=== PATIENT | female | born 1940 | race Caucasian/White ===

== ENCOUNTER 2017-06-24 07:13 | Outpatient (CLI) | payer MEDICARE, OTHER, MEDICAID ==
[~2017-06-24 07:13] MED LIST: Iopamidol 370 76% 100 ML VIAL ONE
--- NOTE | 2017-06-24 09:51 | CT ---
CT ABDOMEN WITH AND WITHOUT IV CONTRAST: HISTORY: Renal cystic masses. COMPARISON: 05/27/17 and 05/12/15. FINDINGS: Mild atelectasis remains at the lung bases. Calcified granulomata throughout the liver are consiste nt with healed granulomatous disease. There is calcification in the arterial structures. No hydron ephrosis or renal calcifications are apparent. The left kidney remains atrophied. The cyst at the superior pole of the right kidney is now 2.7 cm greatest diameter, slightly larger than on the prior CT, but now is of fluid density rather than hyp erdense. Minimal hyperdensity remains within the posterior aspect of this cyst on the precontrast i mages. Small exophytic cyst projects laterally from the inferior pole of the right kidney. Hyperdense cyst at the posterior cortex of the left kidney and small simple cysts within the cortex of the atrophie d left kidney are stable. The septated cystic lesion at the superior pole of the left kidney is sta ble. The pelvis is was not imaged. IMPRESSION: 1. Slight interval enlargement of the cystic lesion at the superior pole of the right kidney, less hyperdense than on the prior CT exam. Other bilateral renal cystic lesions are stable. No new abno rmalities are apparent. 2. Atherosclerosis. POS: [facility]
== END 2017-06-24 07:14 | disposition home or self-care (01) ==
LOC: CT 07:13
PROVIDERS: ATTEND Urology
DX: Q61.00 Congenital renal cyst, unspecified (principal); E11.9 Type 2 diabetes mellitus without complications; I70.90 Unspecified atherosclerosis
CPT/HCPCS: 74170

== ENCOUNTER 2018-09-14 02:30 | Observation (INO) | payer MEDICARE, MEDICAID ==
[2018-09-14 03:06] LABS: #Eosinphils 0.4 thou/uL (0.0-0.7); #Lymphocytes 2.2 thou/uL (1.20-3.40); #Monocytes 0.8 thou/uL (0.11-0.59); #Neutrophils 8.5 thou/uL (1.40-6.50); %Basophils 0.2 % (0.0-1.0); %Eosinophils 3.7 % (0.0-10.0); %Lymphocytes 18.6 % (21.0-51.0); %Monocytes 6.9 % (0.0-10.0); %Neutrophils 70.5 % (42.0-75.0); Hemoglobin 12.6 g/dL (12.0-16.0); Mean Corpuscular HGB CONC 33.2 g/dL (32.0-36.0); Mean Corpuscular Hemoglobin 32.6 pg (27.0-31.0); Mean Corpuscular Volume 98.3 fL (78.0-98.0); Mean Platelet Volume 8.8 fL (7.4-10.4); Platelet Count 259 thou/uL (130-400); RBC Distribution Width 12.2 % (11.5-14.5); Red Blood Cell (RBC) Count 3.86 mill/uL (4.20-5.40)
[2018-09-14 03:21] LABS: Bilirubin Negative (Negative); Blood, Urine Negative (Negative); Clarity CLOUDY (Clear); Glucose, Urine (Dipstick) Negative (Negative); Leukocyte Large (Negative); Nitrite Positive (Negative); Protein, Urine (Dipstick) Trace mg/dL (Neg-Trace); Specific Gravity, Urine 1.012 (1.002-1.036); pH, Urine 7.5 (5.0-9.0)
[2018-09-14 03:24] LABS: Bacteria/HPF 3+ HPF (None Seen); Hyaline Casts/LPF 0-3 HYALINE CAST LPF (0-3 Hyaline); Pathc Cast-AUWi Flag 0.14 (0-2.49); RBC/HPF 0-3 HPF (0-3); Squamous Epithelial 0-3 HPF (0-3); WBC/HPF 21-50 HPF (0-3)
[2018-09-14 03:30] LABS: ALT (SGPT) 13 U/L (8-55); AST (SGOT) 11 U/L (5-34); Albumin 3.7 g/dL (3.4-4.8); Alkaline Phosphatase 69 U/L (40-150); Anion Gap 16 mmol/L (10-20); BUN (Urea Nitrogen) 32 mg/dL (9.8-20.1); Bilirubin, Total 0.2 mg/dL (0.2-1.2); Calc. Creatinine Clearance 0 mL/min (70-130); Calcium 9.7 mg/dL (7.8-10.44); Carbon Dioxide 22 mmol/L (23-31); Chloride 108 mmol/L (98-107); Estimated GFR-MDRD 58; Globulin 3.9 g/dL (2.4-3.5); Glucose 84 mg/dL (83-110); Lipase 95 U/L (8-78); Magnesium 2.2 mg/dL (1.6-2.6); Potassium 4.5 mmol/L (3.5-5.1); Protein, Total 7.6 g/dL (6.0-8.3); Sodium 141 mmol/L (136-145)
[2018-09-14] MEDS ORDERED: cefTRIAXone\\ROCEPHIN 2 GM VIAL ONE (03:53)
[2018-09-14] MEDS ORDERED: Dextrose 10% in Water 1,000 ML IV SCH (08:15)
--- NOTE | 2018-09-14 08:31 | RAD ---
CHEST 1 VIEW: History Altered mental status. COMPARISON: None. FINDINGS: Heart size is enlarged. No focal confluent airspace consolidation, pneumothorax, or effusion. No ac mil osseous abnormality. IMPRESSION: No acute intrathoracic abnormality. Chronic findings. POS: [facility]
[2018-09-14] MEDS ORDERED: Ondansetron PF 4 MG/2 ML Vial IVP PRN (10:48)
[2018-09-14] MEDS ORDERED: Ondansetron ODT 4 MG TAB PO PRN (10:48)
[2018-09-14] MEDS ORDERED: Acetaminophen 325 MG TAB PO PRN (10:48)
[2018-09-14] MEDS ORDERED: Dextrose 5% in Water 1,000 ML IV PRN (10:54)
[2018-09-14] MEDS ORDERED: Dextrose 50% Abboject 50 ML SYRINGE SLOW IVP PRN (10:54)
[2018-09-14] MEDS: Cephalexin 250 MG CAP PO SCH ×2 (11:28→17:40)
[2018-09-14] MEDS: HumaLOG 300 UNITS/3 ML VIAL SC PRN ×3 (11:28→21:13)
--- NOTE | 2018-09-14 19:54 | HP ---
PRIMARY CARE PHYSICIAN: Kaykay Howell PA-C CHIEF COMPLAINT/REASON FOR ADMISSION: The patient transferred to the hospital for hypoglycemia. HISTORY OF PRESENT ILLNESS: Ms. Quintana is a pleasant 77-year-old female, transferred from [facility], where she is a resident, to [facility] secondary to hypoglycemia. The patient has a background history of type 2 diabetes, current insulin dosing include Lantus 10 units subcu in the morning and Lantus 6 units subcu at night. She has as of late tolerated this dose relatively well. At 1 a.m., blood sugar when checked by the long-term was 39. She received 15 g of glucagon, with a recheck blood sugar approximately 15 minutes later of 60. At 01:27, blood sugar documented at 99. She was subsequently transferred to the hospital for additional evaluation and care. ER course included a chest x-ray, which showed no evidence of acute infiltrate. Urinalysis notable for the presence of nitrites as well as leukocyte esterase and 21 to 50 white blood cells. She has had a cough for the last several weeks, presumably upper respiratory . Mildly elevated white blood cell count noted at 12,000. 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 I spoke by phone with the patient's daughter, Mary August, phone #[phone]. She reported that the patient generally had been stable at the nursing facility. 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 This has remained barrier for mobilization. She is transferred by staff from bed to chair throughout the day at the long-term. No reported fevers, chills, nausea, vomiting, or acute symptomatology. Her daughter reports that when she sits out, she does tire easily, reports fatigue. Additionally, staff at the nursing facility had reported confusion and poor awareness. The patient was able to tell me her daughter's names, understood she is in the hospital and not in the long-term, does not oriented to time. PAST MEDICAL HISTORY: 1. 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 2. Type 2 diabetes, on insulin. 3. Essential hypertension. 4. Chronic kidney disease, stage 3. 5. Dyslipidemia. 6. History of supraventricular tachycardia, status post previous ablation. 7. Reported history of polycystic kidney disease. 8. Dementia. PAST SURGICAL HISTORY: 1. Cataract surgery. 2. Spinal shunt surgery for suspected hydrocephalus. 3. Repair of left humeral shaft fracture. 4. Cardiac ablation for supraventricular tachycardia. SOCIAL HISTORY: The patient lives at [facility] in [place], [place]. No history of tobacco use, alcohol use, or illicit drug use. I confirmed her do not resuscitate code status and out of hospital DNR with her family. ALLERGIES: LISTED TO DAMON. FAMILY HISTORY: Several first-degree relatives with reports of diabetes. No family history of coronary artery disease, stroke, or cancer. HOME MEDICATIONS: At this time, home medications are being verified. Information available at this time includes: 1. Aricept 10 mg p.o. once daily. 2. Ascorbic acid 500 mg p.o. once daily. 3. Aspirin 325 mg p.o. once daily. 4. Atorvastatin 40 mg p.o. once daily. 5. Calcium plus vitamin D 600/400 p.o. daily. 6. Carvedilol 6.25 mg p.o. twice daily. 7. Plavix 75 mg p.o. once daily. 8. Ferrous sulfate 300 mg per 5 mL, taking 5 mL orally twice daily. 9. Flecainide 50 mg p.o. twice daily. 10. Levemir 10 units subcu once daily, 6 units subcu at night. 11. Lisinopril 10 mg p.o. once daily. 12. Magnesium oxide 400 mg p.o. once daily. 13. Megace oral suspension 400 mg/10 mL, 10 mL p.o. once daily. 14. Metformin 500 mg p.o. once daily. 15. MiraLax 17 g p.o. daily. 16. Namenda 10 mg p.o. twice daily. 17. Norvasc 10 mg p.o. once daily. 18. NovoLog sliding scale. 19. Pantoprazole 20 mg p.o. once daily. 20. Prednisolone 1% one drop to both eyes twice daily. 21. Prolensa eyedrop 0.07% ophthalmic drop, one drop to both eyes twice daily. 22. Zofran 4 mg orally q.6 hours p.r.n. nausea. REVIEW OF SYSTEMS: Four review of systems reviewed, adjust, negative except otherwise as mentioned above. PHYSICAL EXAMINATION: VITAL SIGNS: Blood pressure 154/75, heart rate 84, temperature 98.5, and respiratory rate is 15. GENERAL: This is a frail elderly female, lying in bed. She is responsive to questions. She is not oriented to the year, but oriented to location. Able to tell her children's names. HEENT: Eyes are without conjunctival injection or scleral icterus. Oropharynx, mucous membranes somewhat dry. NECK: Supple. Full range of motion. HEART: Regular rate and rhythm without distinct murmur, rub, or gallop. LUNGS: Lower lung presley are fairly clear, which improved. Some upper congestion improved with coughing. Thus, lungs presley are fairly clear. ABDOMEN: Soft, nontender, and distended. EXTREMITIES: No clubbing, cyanosis, or edema. NEUROLOGIC: She has a residual left-sided hemiparesis, with left upper extremity contracture, inability to move her left side, which is present and is chronic. It is unchanged from baseline. SKIN: Without skin rashes or skin changes. LABORATORY DATA/DIAGNOSTIC DATA: Lab review: White blood cell count 12,000, hemoglobin 12.6, hematocrit 38, platelet count 259. Serum sodium 141, potassium 4.5, chloride 108, carbon dioxide 22, BUN 32, creatinine 0.93. Glucoses initially on admission 112 and 103, most recent blood sugar 461. Liver function tests are unremarkable. Urinalysis; nitrite positive, large leukocyte esterase, white blood cell 21 to 50, and 3+ bacteria. IMPRESSION: 1. Hypoglycemia, insulin administration, on the background of long standing diabetes. 2. Urinary tract infection, present on admission. 3. History of supraventricular tachycardia, status post prior ablation, on chronic flecainide therapy. 4. History of previous acute ischemic cerebrovascular accident in January 2017 with residual left-sided hemiparesis. 5. Chronic kidney disease, stage 3. 6. Mild intravascular volume depletion. 7. Dyslipidemia. 8. Dementia. PLAN/RECOMMENDATIONS: 1. Infectious Disease - follow up urine culture, already ordered. Initiate cephalosporin based regimen. Also suspect she may have upper respiratory infection/bronchitis. Chest x-ray shows no evidence of pneumonia. Anticipate 5 to 7-day course of antibiotic therapy. Check CBC in the morning. 2. Fluids/electrolytes/nutrition. Discontinued initiated in the emergency department, noted. Oral repletion, no barriers to drinking. Recheck morning lab. 3. Cardiology - continue home medication, though this needs to be verified with long-term that is, in fact, correct. 4. Code status, do not resuscitate. 5. Endocrine - infection may be contributing cause for noted hypoglycemia. Additionally, oral intake at the long-term is unknown. Hold on long-acting insulin, continue correctional scale. Going forward, may benefit from lower insulin dosing. 6. Dementia - continue home medications upon verification. 7. At this time, placed on observational status, further recommendations pending hospital course. Case discussed by follow with the patient's family. Condition is high risk based on medical comorbidities and advanced age. Job ID: [id number]
[2018-09-15] MEDS: Cephalexin 250 MG CAP PO SCH ×3 (00:24→12:27)
[2018-09-15] MEDS: HumaLOG 300 UNITS/3 ML VIAL SC PRN ×2 (06:06→12:27)
[2018-09-15 08:08] LABS: Anion Gap 12 mmol/L (10-20); BUN (Urea Nitrogen) 33 mg/dL (9.8-20.1); Calc. Creatinine Clearance 36 mL/min (70-130); Calcium 8.9 mg/dL (7.8-10.44); Carbon Dioxide 22 mmol/L (23-31); Chloride 107 mmol/L (98-107); Estimated GFR-MDRD 56; Glucose 257 mg/dL (83-110); Potassium 4.3 mmol/L (3.5-5.1); Sodium 137 mmol/L (136-145)
[2018-09-15 08:20] LABS: Band 1 % (5-11); Eosinophils 2 % (0-10); Hemoglobin 11.1 g/dL (12.0-16.0); Lymphocytes 18 % (21-51); MDiff Complete? YES; Mean Corpuscular HGB CONC 34.3 g/dL (32.0-36.0); Mean Corpuscular Hemoglobin 33.5 pg (27.0-31.0); Mean Corpuscular Volume 97.7 fL (78.0-98.0); Mean Platelet Volume 8.7 fL (7.4-10.4); Metamyelocyte 1 % (0-0); Monocytes 4 % (0-10); Neutrophil 74 % (42-75); PLT Morphology Comment Appears Adequate; Platelet Count 240 thou/uL (130-400); Polychromasia SLIGHT = 2-3 cells (100X) (0-2/hpf); White Blood Cell (WBC) Count 11.7 thou/uL (4.8-10.8)
[2018-09-15] MEDS ORDERED: Enoxaparin Sodium 30 MG/0.3 ML SYRINGE SC SCH (09:00)
[2018-09-15 13:13] VITALS: BMI 18.8
[2018-09-15 14:09] VITALS: BP 129/72; TEMP 98.5
--- NOTE | 2018-09-16 05:59 | DIS ---
DATE OF ADMISSION: 09/14/2018 DATE OF DISCHARGE: 09/15/2018 PRIMARY CARE PHYSICIAN: Sharmin Gunter DO and Kaykay Howell PA-C CHIEF COMPLAINT/REASON FOR ADMISSION: The patient was transferred to the hospital for hypoglycemia. ADMISSION DIAGNOSES: 1. Hypoglycemia, in the context of long-acting insulin administration. 2. Suspected urinary tract infection. 3. History of supraventricular tachycardia, status post prior ablation, on chronic flecainide therapy, in sinus rhythm. 4. History of previous acute ischemic cerebrovascular accident in January 2017 with residual left-sided hemiparesis. 5. Chronic kidney disease, stage 3. 6. Mild intravascular volume depletion. 7. Dyslipidemia. 8. Dementia. 9. Upper respiratory tract infection/bronchitis. DISCHARGE DIAGNOSES: 1. Hypoglycemia, likely secondary to suboptimal oral intake, in the context of long acting insulin administration, and no evidence of sepsis. 2. No evidence of urinary tract infection, cultures negative. 3. Upper respiratory tract infection/bronchitis, no evidence of pneumonia. 4. History of supraventricular tachycardia, status post prior ablation, on chronic flecainide therapy, presently in sinus rhythm. 5. History of previous acute ischemic cerebrovascular accident in January 2017 with residual left-sided hemiparesis. 6. Chronic kidney disease, stage 3. 7. Mild intravascular volume depletion, improved. 8. Dyslipidemia. 9. Dementia. PERTINENT LABS/STUDIES: Urine culture negative. Laboratory evaluation, admission white blood cell count 12,000, discharge white cell count is the same, 11.7, hemoglobin at discharge 11.1, hematocrit 32.2. Chemistry panel notable for BUN of 33, creatinine 0.97, glucose on morning lab 257, glucoses have ranged from 257 to 461 during hospital stay, please note long acting insulin was held yesterday. HOSPITAL COURSE: Mrs. Quintana is a 77-year-old female, transferred from [facility], secondary to hypoglycemia. She has a background history of type 2 diabetes with insulin dosing including 10 units of Lantus subcutaneously in the morning and 6 units subcutaneously at night. At 1 a.m., blood [facility] the [facility] and was noted to be 39. She received 15 g of glucagon with recheck blood sugar approximately 15 minutes later of 60. At 0127, blood sugar documented at 99. She was subsequently transferred to the hospital for additional evaluation and care. Her ER course included a chest x-ray, which showed no evidence of acute infiltrate. Urinalysis was notable for evidence of nitrites as well as leukocyte esterase and 21 to 50 white blood cells; however, urine culture has remained negative. This is a straight cath specimen. Her blood sugars in the hospital have shown no recurrence of hypoglycemia. I spoke with her daughter Mary by phone yesterday, suggested downward titration of Lantus, as the patient occasionally will not eat well at the prison. She has eaten well per the nursing staff here at the hospital. Accordingly, I have discontinued her evening dose of Lantus, but we will continue the 10 units of Lantus in the morning. I have requested on her transfer papers for 2 a.m. blood sugar checks in the next 1 week in addition to the usual a.c. and nightly monitoring with mild correctional sliding scale. She did demonstrate cough and congestion, exam compatible with upper respiratory infection, short course of Keflex prescribed. The following day, the patient remained stable, she is oriented to place, able to tell me the name of her children, which is her baseline. She appears stable for transition back to the nursing facility. She has chronic left sided hemiplegia which is unchanged. Lungs, overall, lower presley are clear, upper airways have been congested which clears with cough. Abdomen is soft and nontender. Chest, no Mao catheter. DISCHARGE INSTRUCTIONS: 1. Code Status: Do not resuscitate. 2. Diet: ADA 2000 Kcal with Glucerna p.r.n. 3. Accu-cheks q.a.c. and nightly. MEDICATIONS: 1. Keflex 250 mg p.o. q.6 hourly x5 days, dispensing 20 capsules. 2. Tylenol 500 mg p.o. q.4 hourly p.r.n. pain or fever. 3. Amlodipine 10 mg p.o. once daily. 4. Vitamin C 500 mg p.o. once daily. 5. Aspirin 325 p.o. once daily. 6. Atorvastatin 40 mg p.o. at bedtime. 7. Prolensa eyedrops one drop to each eye twice daily. 8. Calcium plus vitamin D one tablet p.o. daily. 9. Carvedilol 6.25 mg p.o. b.i.d. 10. Plavix 75 mg p.o. daily. 11. Donepezil 10 mg p.o. daily. 12. Ferrous sulfate 5 mL p.o. b.i.d. 13. Flecainide 50 mg p.o. b.i.d. 14. NovoLog insulin per sliding scale, correctional, mild. 15. Levemir 10 units subcutaneously once daily in the morning. 16. Lisinopril 10 mg p.o. daily. 17. Milk of magnesia 30 mg p.o. daily p.r.n. constipation. 18. Magnesium oxide 400 mg p.o. daily. 19. Megace 400 mg p.o. daily. 20. Memantine 10 mg p.o. twice daily. 21. Metformin 500 mg p.o. once daily. 22. Zofran ODT 4 mg p.o. q.6 hourly p.r.n. nausea. 23. Pantoprazole 40 mg p.o. daily. 24. MiraLax 17 g p.o. daily. 25. Prednisone acetate 1% eyedrops, one drop to each eye b.i.d. All medications were the same as admission with the exception of downward titration of long-acting insulin, as well as addition of 5-day course of Keflex. CONDITION ON DISCHARGE: Stable. DISCHARGE TIME: 45 minutes. Job ID: [id number]
== END 2018-09-15 14:10 ==
LOC: ERS 02:30 → SURG A 06:47
PROVIDERS: ADMIT Internal Medicine; ATTEND Internal Medicine
DX: E11.649 Type 2 diabetes mellitus with hypoglycemia without coma (principal); I69.354 Hemiplegia and hemiparesis following cerebral infarction affecting left non-dominant side; I12.9 Hypertensive chronic kidney disease with stage 1 through stage 4 chronic kidney disease, or unspecified chronic kidney disease; E11.22 Type 2 diabetes mellitus with diabetic chronic kidney disease; N18.3 Chronic kidney disease, stage 3 (moderate); E78.5 Hyperlipidemia, unspecified; Q61.3 Polycystic kidney, unspecified; F03.90 Unspecified dementia, unspecified severity, without behavioral disturbance, psychotic disturbance, mood disturbance, and anxiety; E86.9 Volume depletion, unspecified; J06.9 Acute upper respiratory infection, unspecified; Z66 Do not resuscitate; Z79.4 Long term (current) use of insulin; Z88.5 Allergy status to narcotic agent; Z79.82 Long term (current) use of aspirin; Z79.02 Long term (current) use of antithrombotics/antiplatelets; Z79.899 Other long term (current) drug therapy
CPT/HCPCS: 51701; 71045; 80048; 80053; 82962 ×2; 83690; 83735; 85007; 85025; 85027; 87086; 96361 ×2; 96365; 96372; 99285; G0378 ×2; 36415; 36416; 81003; 81015; A4353; J0696; J1650

== ENCOUNTER 2019-01-23 11:58 | Inpatient (IN) | payer MEDICARE, OTHER ==
[2019-01-23 12:31] LABS: Hemoglobin 11.9 g/dL (12.0-16.0); Mean Corpuscular HGB CONC 32.9 g/dL (32.0-36.0); Mean Corpuscular Hemoglobin 32.7 pg (27.0-31.0); Mean Corpuscular Volume 99.1 fL (78.0-98.0); Platelet Count 264 thou/uL (130-400); Red Blood Cell (RBC) Count 3.64 mill/uL (4.20-5.40); White Blood Cell (WBC) Count 20.1 thou/uL (4.8-10.8)
--- NOTE | 2019-01-23 12:46 | CT ---
CT Brain WO Con: 01/23/2019 12:22 PM CLINICAL HISTORY: History of found unresponsive; history of Alzheimer's disease and left-sided paraly sis. IMAGING TECHNIQUE: Multiple CT images were obtained of the brain without IV contrast. COMPARISON: CT the brain dated February 11, 2017 FINDINGS: Infarct: No acute infarct is evident. There are remote lacunar infarcts involving the ochoa radiata bilaterally. There is severe chronic small vessel white matter ischemic change. Hemorrhage: None. Hydrocephalus: None.. Basal cisterns: Normal. Cerebral parenchyma: There is a diffuse cerebral atrophy.. Midline shift: None. Cerebellum: Normal. Brainstem: Normal. OTHER: Calvarium: The skull is intact. There is severe bilateral mastoid effusions.. Visualized Paranasal sinuses: There is an air-fluid level within the left sphenoid sinus.. Extracranial soft tissues:Normal IMPRESSION: 1. No acute intracranial abnormality. 2. Stable chronic ischemic change. 3. Diffuse cerebral atrophy. 4. Air-fluid level within the left sphenoid sinus can be seen with acute sinusitis. 5. Stable severe bilateral mastoid effusions.
[2019-01-23 12:50] LABS: Bilirubin Negative (Negative); Blood, Urine Negative (Negative); Clarity CLEAR (Clear); Glucose, Urine (Dipstick) Negative (Negative); Leukocyte Negative (Negative); Nitrite Negative (Negative); Protein, Urine (Dipstick) Trace mg/dL (Neg-Trace); Specific Gravity, Urine 1.016 (1.002-1.036); Urobilinogen 0.2 mg/dL (0.2-1.0)
[2019-01-23 12:50] LABS: ALT (SGPT) 10 U/L (8-55); AST (SGOT) 9 U/L (5-34); Albumin 3.6 g/dL (3.4-4.8); Alkaline Phosphatase 60 U/L (40-150); Anion Gap 14 mmol/L (10-20); BUN (Urea Nitrogen) 59 mg/dL (9.8-20.1); Bilirubin, Total 0.3 mg/dL (0.2-1.2); Calc. Creatinine Clearance 0 mL/min (70-130); Calcium 10.2 mg/dL (7.8-10.44); Carbon Dioxide 23 mmol/L (23-31); Chloride 114 mmol/L (98-107); Estimated GFR-MDRD 40; Globulin 2.9 g/dL (2.4-3.5); Glucose 226 mg/dL (83-110); Lipase 83 U/L (8-78); Protein, Total 6.5 g/dL (6.0-8.3); Sodium 147 mmol/L (136-145)
[2019-01-23 13:14] LABS: Band 19 % (5-11); Lymphocytes 7 % (21-51); MDiff Complete? YES; Macrocytosis SLIGHT = 6-15 cells (100X) (0-5/hpf); Metamyelocyte 1 % (0-0); Monocytes 6 % (0-10); Myelocyte 1 % (0-0); Neutrophil 63 % (42-75); Ovalocytes SLIGHT = 2-5 cells (100X) (0-1/hpf); Platelet Morphology Comment Appears Adequate; Polychromasia SLIGHT = 2-3 cells (100X) (0-2/hpf)
[2019-01-23 13:24] LABS: CKMB 1.9 ng/mL (0-6.6)
[2019-01-23] MEDS ORDERED: Aspirin 300 MG Suppository ONE (13:57)
[2019-01-23] MEDS ORDERED: cefTRIAXone\\ROCEPHIN 1 GM VIAL ONE (13:57)
[2019-01-23] MEDS ORDERED: Piperacillin/Tazobactam 3.375 GM VIAL ONE (14:54)
[2019-01-23] MEDS ORDERED: Ondansetron PF 4 MG/2 ML Vial IVP PRN ×2 (15:57→16:22)
[2019-01-23] MEDS ORDERED: Ondansetron ODT 4 MG TAB SL PRN (15:57)
[2019-01-23 16:19] VITALS: BMI 16.2
[2019-01-23] MEDS ORDERED: Dextrose 50% Abboject 50 ML SYRINGE SLOW IVP PRN (16:22)
[2019-01-23] MEDS ORDERED: Acetaminophen 500 MG TAB PO PRN (16:22)
[2019-01-23] MEDS ORDERED: Ondansetron ODT 4 MG TAB PO PRN (16:22)
[2019-01-23] MEDS ORDERED: Dextrose 5% in Water 1,000 ML IV PRN (16:22)
[2019-01-23] MEDS ORDERED: hydrALAZINE 20 MG/ML VIAL SLOW IVP PRN (16:22)
--- NOTE | 2019-01-23 17:12 | RAD ---
XR Chest 1 View Portable History: [Dysphagia. Aspiration.] Comparison: Chest radiograph August 2018 Findings: Heart size mildly enlarged. Exam is limited due to leftward patient rotation. No pneumothor ax or effusion. There is lung hyperinflation. Impression: Chronic findings. No acute intrathoracic abnormality.
[2019-01-23] MEDS: Sodium Chloride 0.9% 1,000 ML IV SCH (17:23)
[2019-01-23] MEDS ORDERED: Vancomycin HCl 500 MG in Sodium Chloride 0.9% 100 ML IVPB SCH (18:00)
[2019-01-23 19:43] LABS: Troponin I 0.045 ng/mL (< 0.028)
[2019-01-23] MEDS: Vancomycin HCl 500 MG in Sodium Chloride 0.9% 100 ML IVPB SCH (19:54)
[2019-01-23] MEDS ORDERED: Vancomycin HCl 0.5 GM in Sodium Chloride 0.9% 250 ML 250 ML IVPB SCH (21:00)
[2019-01-23] MEDS ORDERED: Famotidine/PF 20 mg/2ml Vial SLOW IVP SCH (21:00)
--- NOTE | 2019-01-23 21:26 | HP ---
PRIMARY CARE PROVIDER: Dr. Sharmin Gunter. CHIEF COMPLAINT: Altered mental status and hypoglycemia. HISTORY OF PRESENT ILLNESS: This is a 78-year-old female, who presents to [facility] in transfer from [facility], where patient has been a current resident over the last 3 years. The patient was noted with decreased mentation, lethargy with initial glucose of 37. The patient received oral and IV glucose with an increase to 221 per EMS report. The patient with similar presentation in August 2018, previously on long-acting insulin therapy for her diabetes. The history is obtained after discussion with the patient's two daughters at the bedside as patient is unable to provide any coherent history due to a prior CVA with aphasia. The daughters report the patient has been lethargic, essentially bed-bound at [facility] in [place], needing maximal assistance with meals, turning, and transferring. The patient is not currently receiving active physical therapy per family report. The patient has had difficulty with oral intake, needing assistance up to 30 to 60 minutes per meal intake. The patient has had difficulty maintaining hydration status as well. The patient continues with chronic left-sided hemiparesis and needing a modified texture diet orally. In the emergency room, the patient underwent general evaluation including metabolic screening showing evidence of [place]ocytosis [place] [address] with 19% bands. The patient also was noted with acute kidney injury and hypernatremia. The patient received intravenous fluids as well as Rocephin and Zosyn intravenously after concern for an occult infection. Initial urinalysis was unrevealing, however, blood and urine cultures are pending. PAST MEDICAL HISTORY: 1. Nonambulatory status, status post CVA. 2. History of CVA with left hemiparesis and expressive aphasia. 3. History of supraventricular tachycardia, status post cardiac ablation, on chronic flecainide. 4. Chronic kidney disease stage 3. 5. Dyslipidemia. 6. Advanced Alzheimer's dementia. 7. Recurrent hypoglycemia. 8. Diabetes mellitus type 2, on insulin therapy. PAST SURGICAL HISTORY: 1. Status post cataract removal. 2. Status post [employer] shunt for suspected hydrocephalus. 3. Status post left humeral shaft fracture repair. 4. Status post cardiac ablation for supraventricular tachycardia. CURRENT MEDICATIONS: 1. Based on previous admission in 08/2018, Aricept 10 mg p.o. daily. 2. Vitamin C 500 mg p.o. daily. 3. Aspirin 325 mg p.o. daily. 4. Atorvastatin 40 mg p.o. daily. 5. Calcium plus vitamin D 600/400 p.o. daily. 6. Carvedilol 6.25 mg p.o. b.i.d. 7. Plavix 75 mg p.o. daily. 8. Ferrous sulfate 300 mg/5 mL, taking 5 mL p.o. b.i.d. 9. Flecainide 50 mg p.o. b.i.d. 10. Lisinopril 10 mg p.o. daily. 11. Magnesium oxide 400 mg p.o. daily. 12. Megace 400 mg/10 mL p.o. daily. 13. Metformin 500 mg p.o. daily. 14. MiraLax 17 g p.o. daily. 15. Namenda 10 mg p.o. b.i.d. 16. Norvasc 10 mg p.o. daily. 17. Protonix 20 mg p.o. daily. 18. Prednisolone 1% one drop to both eyes b.i.d. 19. Prolensa eye drops 0.07% ophthalmic drops 1 drop to both eyes b.i.d. 20. Zofran 4 mg q.6 hours p.r.n. nausea. ALLERGIES: CODEINE. FAMILY HISTORY: Positive for diabetes mellitus. SOCIAL HISTORY: The patient resides at [facility] in [place] x3 years. No alcohol, tobacco, or illicit drug use. Nonambulatory status. Requires maximal assistance with all activities of daily living. Currently DNAR status per daughters at the bedside. REVIEW OF SYSTEMS: Unobtainable due to patient's altered mental status and aphasia. PHYSICAL EXAMINATION: VITAL SIGNS: On admission, blood pressure 112/65, pulse 82, respiratory rate 16, temperature 97.1 degrees rectally, O2 saturation 100% on room air. GENERAL APPEARANCE: This is a 78-year-old female, cachectic, frail, opens eyes briefly to name. No acute distress. HEENT: Pupils are equal, round, reactive to light and accommodation. Extraocular muscles are intact. No scleral icterus. No conjunctival injection. Nares patent. OP is clear. Oral mucosa dry. NECK: Supple. No cervical adenopathy. No thyromegaly. No carotid bruits. No JVD appreciated. Cervical spine with full active and passive range of motion. CHEST: Diminished breath sounds in the bases bilaterally. CARDIOVASCULAR: S1 and S2 without noted murmur, rub, or gallop. ABDOMEN: Flat, soft, nontender, and nondistended. Bowel sounds are positive in all 4 quadrants. No hepatosplenomegaly. No abdominal bruits. No rebound or guarding appreciated. EXTREMITIES: Generalized severe atrophy. No asymmetric edema appreciated. Pulses palpable distally at the dorsalis pedis, posterior tibial, and popliteal arteries bilaterally. Capillary refill less than 2 seconds. NEUROLOGIC: Aphasic, opens eyes to name briefly. Nonverbal. Dense left hemiparesis. Moves right upper and right lower extremity spontaneously. PERTINENT LAB AND X-RAY FINDINGS: Sodium 147, potassium 4.0, chloride 114, CO2 of 23, BUN 59, creatinine 1.29, estimated GFR 40 glucose 226. Lactic acid level 1.9, calcium 10.2. LFTs within normal limits. Troponin I 0.054. Lipase 83. CBC showed a white blood cell count of 20.1, hemoglobin 12, hematocrit 36, MCV 99, platelet count 264 with 63% neutrophils and 19% bands. Urinalysis negative. CT of the brain without contrast on 01/23/2019 showed no acute intracranial process. Chronic ischemic white matter changes noted. Diffuse cerebral atrophy noted. EKG dated 01/23/2019 by my interpretation shows a sinus mechanism, heart rates in the 80s. Attenuated R-waves noted in the precordial leads. Left axis deviation noted. No acute ST-T wave changes appreciated. ASSESSMENT AND PLAN: 1. Acute metabolic encephalopathy secondary to hypoglycemia. The patient will be admitted to the medical floor. Current hypoglycemia resolved with glucose administration. We will continue serial Accu-Cheks. Hold all insulin and oral diabetic regimen. Continue intravenous normal saline at 75 mL/h. 2. Leukocytosis with bandemia. Exact etiology unclear. We will check portable chest x-ray to rule out focal pneumonia. Initial urinalysis unrevealing. We will continue empiric antibiotic coverage with Zosyn and vancomycin. Await final urine and blood culture results. Repeat CBC in the a.m. 3. Acute kidney injury on chronic kidney disease stage 3. Continue intravenous normal saline as outlined previously. Avoid nephrotoxic agents and limit contrast exposure. Repeat creatinine in the a.m. 4. Dehydration. Suspect multifactorial given patient's inconsistent oral intake and dementia. Continue IV fluids as outlined previously. Continue to monitor oral intake. 5. Hypernatremia. Suspect secondary to volume depletion and dehydration. Continue IV fluids as outlined previously. 6. Nonambulatory status. Continue supportive management. Turning protocol. 7. Advanced Alzheimer's dementia. Continue supportive management. Family to attend the patient during the hospital course at bedside. 8. Prophylaxis. SCDs while in bed. Pepcid 20 mg IV b.i.d. 9. Code status. Do not attempt resuscitation, confirmed with patient's daughters who are medical power of trial attorney. Job ID: [id number]
[2019-01-24] MEDS: Piperacillin/Tazobactam 2.25 GM in Sodium Chloride 0.9% 100 ML IVPB SCH ×4 (00:05→23:15)
[2019-01-24] MEDS: Sodium Chloride 0.9% 1,000 ML IV SCH ×2 (05:01→18:18)
[2019-01-24] MEDS: HumaLOG 300 UNITS/3 ML VIAL SC PRN ×4 (06:30→20:29)
[2019-01-24 06:39] LABS: Anion Gap 14 mmol/L (10-20); BUN (Urea Nitrogen) 52 mg/dL (9.8-20.1); Calc. Creatinine Clearance 27 mL/min (70-130); Calcium 9.5 mg/dL (7.8-10.44); Carbon Dioxide 20 mmol/L (23-31); Chloride 120 mmol/L (98-107); Estimated GFR-MDRD 48; Glucose 229 mg/dL (83-110); Hemoglobin 11.5 g/dL (12.0-16.0); Mean Corpuscular HGB CONC 32.9 g/dL (32.0-36.0); Mean Corpuscular Hemoglobin 33.3 pg (27.0-31.0); Mean Platelet Volume 8.8 fL (7.4-10.4); Platelet Count 247 thou/uL (130-400); Potassium 3.5 mmol/L (3.5-5.1); Red Blood Cell (RBC) Count 3.45 mill/uL (4.20-5.40); Sodium 150 mmol/L (136-145); White Blood Cell (WBC) Count 12.2 thou/uL (4.8-10.8)
[2019-01-24 06:45] LABS: Band 2 % (5-11); Hypochromia SLIGHT = 6-15 cells (100X) (0-5/hpf); Lymphocytes 11 % (21-51); MDiff Complete? YES; Macrocytosis SLIGHT = 6-15 cells (100X) (0-5/hpf); Monocytes 6 % (0-10); Neutrophil 81 % (42-75); Platelet Morphology Comment Appears Adequate
--- NOTE | 2019-01-24 16:45 | PRG ---
DATE OF SERVICE: 01/24/2019 SUBJECTIVE: The patient is currently nonverbal, resting in bed. OBJECTIVE: VITAL SIGNS: Temperature 98.7, T-max 98.7, pulse 83, respirations 18, O2 saturation 97% on room air, blood pressure 143/83. GENERAL APPEARANCE: Age-appropriate female. She is in no distress. She appears to have some flexion contractures in the right hand. She does awaken, nods her head slightly when asked if she is okay, but not otherwise interactive. HEART: Notable for a 2/6 murmur at the left upper sternal border. LUNGS: Clear bilaterally. ABDOMEN: Soft, nontender, nondistended. EXTREMITIES: No cyanosis, clubbing, or edema. LABORATORY DATA: White count 12.2, hemoglobin 11.5, platelets 247, 81 segs, 2 bands, 11 lymphocytes. Sodium 150, potassium 3.5, chloride 120, CO2 is 20, BUN 52, creatinine is 1.11, glucose 108 up to 229. Troponin 0.045. IMPRESSION AND PLAN: 1. Hypoglycemia appears to be completely resolved at this point. We will continue sliding scale for now. 2. Possible sepsis. The patient had significant leukocytosis with left shift at time of presentation, as well as her hypoglycemia. There is no specific source of infection identified. She does not appear to have had blood cultures obtained. Her urine is negative. Chest x-ray was negative. Her white count is down and the left shift improved. We will repeat a chest x-ray in the morning to ensure that nothing has developed given her dysphagia. We will continue the vancomycin and Zosyn for now, although again these are empiric based on the above. 3. Chronic Alzheimer type dementia. 4. Diabetes mellitus. Continuing sliding scale. Once she remains stable, we will be able to get her back on her home medications. 5. Hypernatremia, presumably secondary to dehydration. May need to consider changing her fluids from normal saline to half-normal saline. 6. Acute on chronic renal insufficiency. The patient appears to run chronic stage 3 kidney disease, which is slightly worse at this admission. Again, thought to be related to some dehydration. It is slightly improved. 7. Elevated troponin is actually likely in the normal range given her renal function and age. Job ID: [id number]
[2019-01-24] MEDS: Vancomycin HCl 500 MG in Sodium Chloride 0.9% 100 ML IVPB SCH (20:03)
[2019-01-24] MEDS: Famotidine/PF 20 mg/2ml Vial SLOW IVP SCH (20:03)
[2019-01-25] MEDS: HumaLOG 300 UNITS/3 ML VIAL SC PRN ×4 (05:07→21:28)
[2019-01-25] MEDS: Piperacillin/Tazobactam 2.25 GM in Sodium Chloride 0.9% 100 ML IVPB SCH ×3 (05:10→22:29)
--- NOTE | 2019-01-25 07:52 | RAD ---
Chest AP view INDICATION: Sepsis COMPARISON: Prior exam dated January 23, 2019 FINDINGS: Lungs:The lungs are clear Cardiac silhouette pulmonary vasculature:There is stable cardiomegaly. Pulmonary vasculature appears within normal limits. Pleural spaces:No pleural effusion or pneumothorax is demonstrated. Upper abdomen:No abnormality seen. Osseous structures: No acute osseous abnormality. IMPRESSION: No acute cardiopulmonary abnormality.
[2019-01-25] MEDS: Sodium Chloride 0.9% 1,000 ML IV SCH (08:48)
[2019-01-25] MEDS ORDERED: Amlodipine 5 MG TAB PO SCH (13:30)
[2019-01-25] MEDS ORDERED: Insulin Glargine 10 UNITS in Pre-Filled Syringe 1 EACH SC SCH (13:45)
[2019-01-25 14:17] LABS: #Basophils 0.1 thou/uL (0.0-0.2); #Eosinphils 0.4 thou/uL (0.0-0.7); #Lymphocytes 2.3 thou/uL (1.20-3.40); #Monocytes 0.8 thou/uL (0.11-0.59); #Neutrophils 7.5 thou/uL (1.40-6.50); %Basophils 0.8 % (0.0-1.0); %Lymphocytes 20.5 % (21.0-51.0); %Monocytes 7.3 % (0.0-10.0); %Neutrophils 67.5 % (42.0-75.0); Hemoglobin 11.4 g/dL (12.0-16.0); Mean Corpuscular Hemoglobin 32.5 pg (27.0-31.0); Mean Corpuscular Volume 98.4 fL (78.0-98.0); Mean Platelet Volume 8.5 fL (7.4-10.4); Platelet Count 241 thou/uL (130-400); RBC Distribution Width 13.8 % (11.5-14.5); Red Blood Cell (RBC) Count 3.52 mill/uL (4.20-5.40); White Blood Cell (WBC) Count 11.1 thou/uL (4.8-10.8)
[2019-01-25 14:36] LABS: Anion Gap 14 mmol/L (10-20); BUN (Urea Nitrogen) 25 mg/dL (9.8-20.1); Calc. Creatinine Clearance 35 mL/min (70-130); Calcium 8.6 mg/dL (7.8-10.44); Carbon Dioxide 18 mmol/L (23-31); Chloride 122 mmol/L (98-107); Estimated GFR-MDRD 66; Glucose 226 mg/dL (83-110); Potassium 3.1 mmol/L (3.5-5.1); Sodium 151 mmol/L (136-145)
[2019-01-25] MEDS ORDERED: Potassium Chloride 20 MEQ TAB PO SCH (16:30)
[2019-01-25] MEDS: Sodium Chloride 0.45% 1,000 ML IV SCH (16:46)
--- NOTE | 2019-01-25 16:56 | PRG ---
DATE OF SERVICE: 01/25/2019 SUBJECTIVE: The patient has not been terribly verbally interactive, again today for me. I talked to the nurse and she reports that the patient is much more interactive with her. The patient has been eating well. I also spoke to the patient's daughter via phone. She visited her mother today and she says that she was more interactive and spoke their names this morning, which they feel like is a significant improvement over when she arrived. OBJECTIVE: VITAL SIGNS: Temperature is 98.2, pulse 80, blood pressure 153/88, respirations 18, and O2 saturation 96% on room air. GENERAL APPEARANCE: Age-appropriate female. She was sleeping, easily awakened, again did not verbally interact with me, which her daughter indicates is not uncommon. HEART: Regular rate and rhythm without murmurs. LUNGS: Clear bilaterally. ABDOMEN: Soft, nontender, and nondistended. EXTREMITIES: Warm and dry. LABORATORY DATA: White count 11.1, hemoglobin 11.4, and platelets 241. Sodium 151, potassium 3.1, chloride 122, CO2 is 18, BUN 25, creatinine 0.83, GFR 66, and glucose 226. IMAGING DATA: Chest x-ray remains negative. IMPRESSION AND PLAN: 1. Acute metabolic encephalopathy secondary to hypoglycemia. The patient has baseline dementia, but it sounds like according to the nurse and the patient's daughter, the patient's mental status has improved and is essentially at her baseline. 2. Hypoglycemia, resolved. The patient is now hyperglycemic. 3. Diabetes mellitus with hyperglycemia. Some of her medications were initially held due to the hypoglycemia and some renal insufficiency, resuming those medications and giving her dose of long-acting insulin now. 4. Leukocytosis with bandemia. No evidence of urinary tract infection or pneumonia. Blood cultures were not obtained. She remains on vancomycin and Zosyn. If her white count continues to normalize and she remains afebrile, we will discontinue those tomorrow. Her white count is down almost to normal and the bandemia resolved yesterday. 5. Acute on chronic renal disease. The patient's creatinine has improved with fluids. 6. Dehydration, improved. 7. Hypernatremia. The patient actually got worse with normal saline hydration, changing her to half-normal saline and will repeat in the morning. 8. Hypokalemia. P.o. dose of potassium now. 9. Advanced Alzheimer's dementia. Continue her outpatient regimen. 10. Nonambulatory. The patient continue the turning protocol. Job ID: [id number]
[2019-01-25 19:38] LABS: Vancomycin, Trough 9.7 ug/mL
[2019-01-25] MEDS: Vancomycin HCl 750 MG in Sodium Chloride 0.9% 250 ML 250 ML IVPB SCH (20:41)
[2019-01-25] MEDS: Famotidine/PF 20 mg/2ml Vial SLOW IVP SCH (21:27)
[2019-01-25] MEDS: Flecainide 50 MG TAB PO SCH (21:27)
[2019-01-25] MEDS: Clopidogrel Bisulfate 75 MG TAB PO SCH (21:27)
[2019-01-25] MEDS: metFORMIN 500 MG TAB PO SCH (21:27)
[2019-01-25] MEDS: Atorvastatin Calcium 40 MG TAB PO SCH (21:27)
[2019-01-25] MEDS: Carvedilol 6.25 MG TAB PO SCH (21:27)
[2019-01-26] MEDS: Sodium Chloride 0.45% 1,000 ML IV SCH ×3 (05:37→20:15)
[2019-01-26] MEDS: Piperacillin/Tazobactam 2.25 GM in Sodium Chloride 0.9% 100 ML IVPB SCH ×2 (06:02→14:34)
[2019-01-26 07:07] LABS: #Basophils 0.1 thou/uL (0.0-0.2); #Eosinphils 0.4 thou/uL (0.0-0.7); #Lymphocytes 2.8 thou/uL (1.20-3.40); #Monocytes 0.7 thou/uL (0.11-0.59); #Neutrophils 6.3 thou/uL (1.40-6.50); %Basophils 0.6 % (0.0-1.0); %Eosinophils 4.2 % (0.0-10.0); %Lymphocytes 27.1 % (21.0-51.0); %Monocytes 6.9 % (0.0-10.0); %Neutrophils 61.3 % (42.0-75.0); Hemoglobin 11.1 g/dL (12.0-16.0); Mean Corpuscular HGB CONC 33.6 g/dL (32.0-36.0); Mean Corpuscular Hemoglobin 33.4 pg (27.0-31.0); Mean Corpuscular Volume 99.5 fL (78.0-98.0); Mean Platelet Volume 8.9 fL (7.4-10.4); Platelet Count 217 thou/uL (130-400); RBC Distribution Width 13.9 % (11.5-14.5); Red Blood Cell (RBC) Count 3.33 mill/uL (4.20-5.40); White Blood Cell (WBC) Count 10.3 thou/uL (4.8-10.8)
[2019-01-26 07:26] LABS: Anion Gap 14 mmol/L (10-20); BUN (Urea Nitrogen) 19 mg/dL (9.8-20.1); Calc. Creatinine Clearance 40 mL/min (70-130); Calcium 8.3 mg/dL (7.8-10.44); Carbon Dioxide 18 mmol/L (23-31); Chloride 122 mmol/L (98-107); Estimated GFR-MDRD 76; Glucose 149 mg/dL (83-110); Potassium 3.8 mmol/L (3.5-5.1); Sodium 150 mmol/L (136-145)
[2019-01-26] MEDS ORDERED: Non-Formulary Item 1 EACH (Insulin Detemir 100 Units/Ml [Levemir] 10 UNITS) SC SCH (09:00)
[2019-01-26] MEDS: Megestrol Acetate 800 MG/20 ML UDCUP PO SCH (09:14)
[2019-01-26] MEDS: Ascorbic Acid 500 mg Chewable Tablet PO SCH (09:15)
[2019-01-26] MEDS: Carvedilol 6.25 MG TAB PO SCH ×2 (09:15→20:13)
[2019-01-26] MEDS: Lisinopril 10 MG TAB PO SCH (09:15)
[2019-01-26] MEDS: Amlodipine 10 MG TAB PO SCH (09:16)
[2019-01-26] MEDS: Aspirin 325 mg Enteric Coated Tablet PO SCH (09:16)
[2019-01-26] MEDS: metFORMIN 500 MG TAB PO SCH ×2 (09:16→20:12)
[2019-01-26] MEDS: Flecainide 50 MG TAB PO SCH ×2 (09:16→20:12)
[2019-01-26] MEDS: Insulin Glargine 10 UNITS in Pre-Filled Syringe 1 EACH SC SCH (09:17)
[2019-01-26] MEDS: HumaLOG 300 UNITS/3 ML VIAL SC PRN (12:01)
--- NOTE | 2019-01-26 16:55 | PQF ---
CLINICAL DOCUMENTATION IMPROVEMENT CLARIFICATION FORM: ICD-10 Updated PLEASE DO AN ADDENDUM TO THE PROGRESS NOTE WITH ANY DOCUMENTATION UPDATES OR ADDITIONS AND CARRY THROUGH TO DC SUMMARY. THANK YOU. Date: 01/26/2019 ATTN: Dr. Martin Please exercise your independent, professional judgment in responding to the clarification form. Clinical indicators are provided on the bottom of this form for your review Please check appropriate box(s): [ x ] Protein Calorie Malnutrition: [ ] Mild [ ] Moderate [ x ] Severe [ ] Other Malnutrition (please specify) [ ] Underweight without malnutrition [ ] Cachexia [ ] Other diagnosis [ ] Unable to determine In addition, please specify: Present on Admission (POA): [ x ] Yes [ ] No [ ] Unable to determine CLINICAL INDICATORS - SIGNS / SYMPTOMS / LABS ER Record 01/23: Pt is cachectic. [employer] Supervisor Assessment 01/24: Nutrition Diagnosis: Malnutrition related to possible Alzheimer's as evidenced by: severe malnutrition demonstrated by -13.6% wt loss over past 4-5 months, severe muscle wasting noted to interosseous/temporalis muscles with limited fat stores noted in the context of chronic illness RISKS: H&P 01/23: PMH: Nonambulatory status, s/p CVA. 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 Advanced Alzheimer's dementia. TREATMENT: [employer] Supervisor Consult triggered for BMI 16.2 Order 01/24: Supplement: Suplena BID Order 01/26 Supplement: Devan Shake TID with meals Moderate Malnutrition (in acute illness) Energy Intake: <75% of estimated energy requirement for > 7 days Weight Loss: 1-2%/1 week; 5%/ 1 month; 7.5%/3 months Other: mild body fat loss; mild muscle mass loss; mild fluid accumulation; Severe Malnutrition (in acute illness) Energy Intake: < 50% of estimated energy requirement for > 5 days Weight Loss: >1-2%/1 week; >5%/1 month; >7.5%/3 months Other: moderate body fat loss; moderate muscle mass loss; moderate- severe fluid accumulation; measurably reduced pediatric nephrologist strength Moderate Malnutrition (in chronic illness) Energy Intake: <75% of estimated energy requirement for >1 month Weight Loss: 5%/1 month; 7.5%/3 months; 10%/6 months; 20%/1 year Other: mild body fat loss; mild muscle mass loss; mild fluid accumulation Severe Malnutrition (in chronic illness) Energy Intake: <75% of estimated energy requirement for >1 month Weight Loss: >5%/1 month; >7.5%/3 months; >10%/6 months; >20%/1 year Other: severe body fat loss; severe muscle mass loss; severe fluid accumulation; measurably reduced pediatric nephrologist strength Thank you, Jalyn (This form is maintained as a part of the permanent medical record) 2015 [employer]. All Rights Reserved Jalyn Vargas RN, BSN [email or web address] Office: [phone] [facility]
[2019-01-26] MEDS: Famotidine 20 MG TAB PO SCH (20:12)
[2019-01-26] MEDS: Atorvastatin Calcium 40 MG TAB PO SCH (20:12)
[2019-01-26] MEDS: Vancomycin HCl 750 MG in Sodium Chloride 0.9% 250 ML 250 ML IVPB SCH (20:12)
[2019-01-26] MEDS: Clopidogrel Bisulfate 75 MG TAB PO SCH (20:13)
[2019-01-27] MEDS: Piperacillin/Tazobactam 2.25 GM in Sodium Chloride 0.9% 100 ML IVPB SCH ×4 (00:01→23:39)
[2019-01-27 07:50] LABS: #Basophils 0.1 thou/uL (0.0-0.2); #Eosinphils 0.4 thou/uL (0.0-0.7); #Monocytes 0.7 thou/uL (0.11-0.59); #Neutrophils 8.2 thou/uL (1.40-6.50); %Basophils 0.6 % (0.0-1.0); %Eosinophils 2.9 % (0.0-10.0); %Lymphocytes 24.4 % (21.0-51.0); %Monocytes 5.6 % (0.0-10.0); %Neutrophils 66.5 % (42.0-75.0); Hemoglobin 10.3 g/dL (12.0-16.0); Mean Corpuscular HGB CONC 33.8 g/dL (32.0-36.0); Mean Corpuscular Hemoglobin 33.2 pg (27.0-31.0); Mean Corpuscular Volume 98.2 fL (78.0-98.0); Mean Platelet Volume 8.8 fL (7.4-10.4); Platelet Count 205 thou/uL (130-400); RBC Distribution Width 13.6 % (11.5-14.5); White Blood Cell (WBC) Count 12.3 thou/uL (4.8-10.8)
[2019-01-27 08:22] LABS: Anion Gap 12 mmol/L (10-20); BUN (Urea Nitrogen) 15 mg/dL (9.8-20.1); Calc. Creatinine Clearance 40 mL/min (70-130); Calcium 7.9 mg/dL (7.8-10.44); Carbon Dioxide 20 mmol/L (23-31); Chloride 114 mmol/L (98-107); Estimated GFR-MDRD 77; Glucose 101 mg/dL (83-110); Potassium 3.4 mmol/L (3.5-5.1); Sodium 143 mmol/L (136-145)
[2019-01-27] MEDS: Megestrol Acetate 800 MG/20 ML UDCUP PO SCH (10:13)
[2019-01-27] MEDS: Flecainide 50 MG TAB PO SCH ×2 (10:14→20:49)
[2019-01-27] MEDS: metFORMIN 500 MG TAB PO SCH ×2 (10:15→20:48)
[2019-01-27] MEDS: Carvedilol 6.25 MG TAB PO SCH ×2 (10:15→20:48)
[2019-01-27] MEDS: Ascorbic Acid 500 mg Chewable Tablet PO SCH (10:15)
[2019-01-27] MEDS: Aspirin 325 mg Enteric Coated Tablet PO SCH (10:15)
[2019-01-27] MEDS: Lisinopril 10 MG TAB PO SCH (10:15)
[2019-01-27] MEDS: Amlodipine 10 MG TAB PO SCH (10:16)
[2019-01-27] MEDS: Insulin Glargine 10 UNITS in Pre-Filled Syringe 1 EACH SC SCH (10:16)
--- NOTE | 2019-01-27 12:38 | PRG ---
DATE OF SERVICE: 01/27/2019 SUBJECTIVE: The patient did speak to me today. She asked me what my name was and then did not speak further, but continues to engage with eye contact. OBJECTIVE: VITAL SIGNS: T-max is 98.2, pulse 73, blood pressure 145/84, respirations 16, and O2 saturation 96% on room air. GENERAL APPEARANCE: She is awake and alert. She does make eye contact. Again, not speaking much. HEART: Regular rate and rhythm without murmurs, gallops, or rubs. LUNGS: Clear to auscultation with no wheezes or rales. ABDOMEN: Soft, nontender, and nondistended. Positive bowel sounds. No masses. No organomegaly. EXTREMITIES: No cyanosis, clubbing, or edema. SKIN: Generally warm and dry with no evidence of inflammation or rashes. LABORATORY DATA: White count 12.3, hemoglobin 10.3, and platelets 205. Sodium 143, potassium 3.4, chloride 114, CO2 is 20, BUN 15, creatinine 0.73, and glucose 69 to 155. IMPRESSION AND PLAN: 1. Acute metabolic encephalopathy likely secondary to hypoglycemia and potentially infection. It appears to be at her baseline. She is more awake and alert than I have seen her today and consistent with what the family was reporting, it could have been related to some hypernatremia as well, which is now resolved. 2. Hypoglycemia. The patient was resumed back on her usual medications, still showing a little bit of borderline hypoglycemia. I am going to discontinue all insulin and just keep her on the metformin for now that should not cause significant hypoglycemia, but depending on how it goes, may even need to discontinue that as well. 3. Diabetes mellitus. The patient was having some hyperglycemia likely due to some IV fluids. Those are now discontinued and her numbers are actually back in the normal to low range. 4. Leukocytosis, originally presented with significant leukocytosis with left shift that normalized and today, her white count is back up a little bit. At this point, still have no evidence of specific infection. I talked to the patient's daughter today. I feel like we are going to keep the patient one more day. Recheck the labs in the morning. If her white count continues to be up, we then will need to likely consult ID, potentially stop the antibiotics, re-culture and look further for the occult sources of infection. If on the other hand it appears to be improved, we will likely discharge on oral antibiotic regimen. 5. Dehydration, resolved. 6. Hypernatremia. The patient was on hypotonic saline and her numbers have now normalized. We will discontinue her IV fluids. 7. Hypokalemia, resolved. 8. Advanced Alzheimer's dementia, stable. Job ID: [id number]
[2019-01-27] MEDS: HumaLOG 300 UNITS/3 ML VIAL SC PRN (12:53)
[2019-01-27] MEDS: Sodium Chloride 0.45% 1,000 ML IV SCH (12:57)
[2019-01-27 19:34] LABS: Vancomycin, Trough 18.4 ug/mL
[2019-01-27] MEDS: Vancomycin HCl 750 MG in Sodium Chloride 0.9% 250 ML 250 ML IVPB SCH (20:45)
[2019-01-27] MEDS: Clopidogrel Bisulfate 75 MG TAB PO SCH (20:48)
[2019-01-27] MEDS: Famotidine 20 MG TAB PO SCH (20:49)
[2019-01-27] MEDS: Atorvastatin Calcium 40 MG TAB PO SCH (20:49)
[2019-01-28 06:06] LABS: #Basophils 0.1 thou/uL (0.0-0.2); #Eosinphils 0.4 thou/uL (0.0-0.7); #Lymphocytes 2.9 thou/uL (1.20-3.40); #Monocytes 0.6 thou/uL (0.11-0.59); #Neutrophils 8.1 thou/uL (1.40-6.50); %Basophils 0.4 % (0.0-1.0); %Eosinophils 3.5 % (0.0-10.0); %Lymphocytes 23.6 % (21.0-51.0); %Monocytes 5.3 % (0.0-10.0); %Neutrophils 67.1 % (42.0-75.0); Hemoglobin 10.2 g/dL (12.0-16.0); Mean Corpuscular HGB CONC 33.7 g/dL (32.0-36.0); Mean Corpuscular Hemoglobin 33.3 pg (27.0-31.0); Mean Corpuscular Volume 98.9 fL (78.0-98.0); Mean Platelet Volume 8.9 fL (7.4-10.4); Platelet Count 194 thou/uL (130-400); RBC Distribution Width 13.4 % (11.5-14.5); Red Blood Cell (RBC) Count 3.08 mill/uL (4.20-5.40); White Blood Cell (WBC) Count 12.1 thou/uL (4.8-10.8)
[2019-01-28] MEDS: Piperacillin/Tazobactam 2.25 GM in Sodium Chloride 0.9% 100 ML IVPB SCH ×3 (06:07→23:52)
[2019-01-28 06:15] LABS: Anion Gap 14 mmol/L (10-20); BUN (Urea Nitrogen) 14 mg/dL (9.8-20.1); Calc. Creatinine Clearance 39 mL/min (70-130); Calcium 8.6 mg/dL (7.8-10.44); Carbon Dioxide 17 mmol/L (23-31); Chloride 116 mmol/L (98-107); Estimated GFR-MDRD 74; Potassium 3.8 mmol/L (3.5-5.1); Sodium 143 mmol/L (136-145)
[2019-01-28 06:18] LABS: Glucose 49 mg/dL (83-110)
[2019-01-28] MEDS: Aspirin 325 mg Enteric Coated Tablet PO SCH (07:46)
[2019-01-28] MEDS: Megestrol Acetate 800 MG/20 ML UDCUP PO SCH (07:46)
[2019-01-28] MEDS: Flecainide 50 MG TAB PO SCH ×2 (07:46→20:20)
[2019-01-28] MEDS: Ascorbic Acid 500 mg Chewable Tablet PO SCH (07:46)
[2019-01-28] MEDS: Lisinopril 10 MG TAB PO SCH (07:47)
[2019-01-28] MEDS: Carvedilol 6.25 MG TAB PO SCH ×2 (07:47→20:22)
[2019-01-28] MEDS: Amlodipine 10 MG TAB PO SCH (07:47)
[2019-01-28] MEDS: metFORMIN 500 MG TAB PO SCH (07:48)
[2019-01-28] MEDS ORDERED: Enoxaparin Sodium 30 MG/0.3 ML SYRINGE SC SCH (11:15)
[2019-01-28] MEDS ORDERED: Iopamidol 370 76% 100 ML VIAL ONE (12:04)
--- NOTE | 2019-01-28 12:13 | PRG ---
DATE OF SERVICE: 01/28/2019 SUBJECTIVE: The patient is sleeping. She is awake and again makes eye contact, but is not speaking. OBJECTIVE: VITAL SIGNS: Temperature 98.1, pulse 89, respirations 20, O2 saturation 97%, and BP is 130/79. GENERAL APPEARANCE: Age-appropriate female with substantial dementia and is not verbally interactive with any significant degree. HEENT: The patient has some evidence of carious teeth and gingivitis, especially in the right upper gumline around carious molar. NECK: Supple and symmetric. HEART: Regular rate and rhythm without murmurs, gallops, or rubs. LUNGS: Clear to auscultation bilaterally with good chest wall expansion and air exchange. ABDOMEN: Soft, nontender, and nondistended. Positive bowel sounds. No masses. No organomegaly. EXTREMITIES: Warm and dry. No cyanosis, clubbing, or edema. SKIN: With no lesions. LABORATORY DATA: White count 12.1, hemoglobin 10, normal differential. Sodium 143, potassium 3.8, chloride 116, CO2 is 17, BUN 14, creatinine 0.76, glucose down to 49 on venous draw, most recent of 298. IMPRESSION AND PLAN: 1. Acute metabolic encephalopathy, which was originally thought to be related to picture of sepsis or hypoglycemia. The patient appears to be back to her normal mental status. 2. Hypoglycemia. The patient was taken off her medications initially and given some dextrose through the IV and was hyperglycemic. Once she was stabilized, the dextrose was discontinued and she was started back on her usual regimen minus the insulin, which was basically just being on the metformin. This morning, she is hypoglycemic again. We will discontinue the metformin. At this point, it appears this may be nutritional deficiency. Therefore, we will continue to monitor with no medications and monitor her intake. 3. Poor p.o. intake. The patient appears to have severe protein deficiency malnutrition. Based on my observation and the notes from the dietitian, it appears that this patient is simply not getting adequate calorie intake due to her profound dementia. The patient is in need of some help with meals. She has poor dentition and at this point, it is just not clear that she is taking in enough to sustain herself. We will need to have a conversation with the dietitians tomorrow and potentially have a conversation with family regarding desires to pursue parenteral PEG feedings. Unfortunately, just a manifestation of end-stage Alzheimer's. 4. Alzheimer disease again advanced and nearing end-stage. The patient is unable to adequately take nutrition resulting in severe malnutrition and now with current episodes of hypoglycemia. 5. Diabetes mellitus, off all medications. 6. Leukocytosis, this patient originally presented with significant leukocytosis with significant left shift. There was no specific infection identified. She was started empirically on broad-spectrum antibiotics. Her white blood cell count resolved, but now is back up a bit. She has had no fever and still no evidence of infection other than potentially some dental issues, which should be adequately treated given the current antibiotic regimen and should not have a recurrence of the leukocytosis. We will ask ID to see the patient eventually to help determine what we should do with antibiotics. If anything suspect, we may need to simply discontinue them at this point and monitor her for symptoms or if leukocytosis worsen, then re-culture. Unfortunately, she did not get blood cultures obtain at the time of admission. Urine has been negative. Chest x-ray has been negative. 7. Dehydration. Continuing with IV fluids as adequate intake. 8. Hypernatremia, resolved and hypotonic fluids were discontinued. 9. Hypokalemia, resolved. 10. There is no evidence documented that the patient has had a bowel movement last several days. We will go ahead and start sennosides. Job ID: [id number]
--- NOTE | 2019-01-28 15:01 | PDOC.EVN ---
Event Note - Event Note Event Note: Talked with patient's daughter again today. Explained that her mother does not appear to be taking adequate oral nutrition and has lost significant weight and has recurrent hypoglycemia. Meds have been stopped. Likely a consequence of end-stage dementia. May also be related to poor dental health. Will investigate for possible infection. If one exists and can be treated, may make her feel better. If not, will need to discuss options with ladle patcher. Failing other options, a PEG could be considered. She has been discussing this with her other siblings and are not sure they would want to pursue that. Encouraged her to continue to discuss that with her family. She confirmed that her mother is DNR and her mother's quality of life is poor and they understand that. We will continue to try to keep her informed. of the situation. Total time spent in advanced care planning 16 min.
--- NOTE | 2019-01-28 17:19 | CT ---
CHEST CT WITH CONTRAST ABDOMEN CT WITH CONTRAST PELVIC CT WITH CONTRAST: History: Leukocytosis. Fever of unknown origin. Dementia. FINDINGS: CHEST CT: No mediastinal mass, lymphadenopathy, or hematoma. There is upper normal heart size with a small amou nt of pericardial fluid. Coronary calcifications are identified. Adequate contrast opacification of t he central pulmonary arteries. The remainder of the pulmonary vasculature could not be assessed. The thoracic and abdominal aorta have an overall normal caliber. No periaortic fat stranding. There are dependent atelectatic changes in the lung parenchyma. Areas of scarring are noted in the lo wer lobes. Trace bilateral effusions. No pneumothorax. ABDOMEN CT: There is appropriate enhancement of the solid organs. Multiple hypodensities in the renal cortices likely due to cysts. The left kidney is dimunitive. Bila terally, no obstructive uropathy. No gastrohepatic, retrocrural or peripleural lymphadenopathy. 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 Nonspecific calcification in the body of the pancreas. No mesenteric mass, lymphadenopathy, free air or free fluid. Gastric mucosa, duodenum, and multiple normal caliber small bowel loops are identified. Ileocecal jody ction is unremarkable. Appendix is not appreciated. No inflammation of the cecal apex. There is fluid attenuation scattered throughout the colon, without well-formed fecal material. Correlate for coliti s. CT PELVIS: Calcification in the uterus likely due to fibroid changes. No pelvic, mass, lymphadenopathy, free air or free fluid. Urinary bladder is unremarkable. IMPRESSION: 1. No evidence of abscess or infected fluid collection in the abdomen or pelvis. 2. Fluid attenuation scattered throughout the colon. Correlate for colitis. 3. Minimal dependent atelectatic changes lung parenchyma. Trace bilateral effusions. POS: [facility]
[2019-01-28] MEDS: Clopidogrel Bisulfate 75 MG TAB PO SCH (20:22)
[2019-01-28] MEDS: Atorvastatin Calcium 40 MG TAB PO SCH (20:22)
[2019-01-28] MEDS: Famotidine 20 MG TAB PO SCH (20:22)
[2019-01-28] MEDS: Senokot S 8.6-50 MG TAB PO SCH (20:23)
--- NOTE | 2019-01-28 21:47 | CON ---
DATE OF CONSULTATION: 01/28/2019 REASON FOR CONSULTATION: Type 2 diabetes, dementia, altered mental status with hypoglycemia and leukocytosis. HISTORY OF PRESENT ILLNESS: A 78-year-old with a history of polycystic kidney disease, type 2 diabetes, prior episodes of UTI, CVA with dementia, who was identified of hypoglycemia in the halfway. They also noticed decrease in oral intake except when she is fed by relative members. She has not had any evidence of aspiration. No respiratory symptoms. No diarrhea. She voids spontaneously. She is nonambulatory and stays in bed or in the wheel chair. PAST MEDICAL HISTORY: CVA, left tiffany paresis, SVT with ablation, renal insufficiency, dyslipidemia, likely vascular dementia, type 2 diabetes. 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 ALLERGIES: CODEINE. FAMILY HISTORY: Type 2 diabetes. SOCIAL HISTORY: [facility] resident for the past few years. Never smoker. She has a DNR status. MEDICATIONS: Currently receiving; 1. Norvasc. 2. Ecotrin. 3. Lipitor. 4. Coreg. 5. Plavix. 6. Lovenox. 7. Pepcid. 8. Tambocor. 9. Insulin. 10. Zestril. 11. Megace. 12. Namenda. 13. Zosyn. 14. Vancomycin. PHYSICAL EXAMINATION: VITAL SIGNS: T-max 98.4, blood pressure 130/70, pulse 78, respirations 16, and O2 saturation 92% to 98%. SKIN: The patient has a peripheral IV access and she is voiding in the diaper. GENERAL: She is awake, establishes eye contact, but does not reply to questions, does not follow commands. HEENT: Ocular movements are conjugate. No lymphadenopathy. Oral cavity moist. NECK: Supple. LUNGS: Symmetric air entry. S1, S2. Regular rate without murmurs. ABDOMEN: Soft, not distended or tender. No ascites. No evidence of bladder distention. NEUROLOGIC: Left hemiparesis. LABORATORY DATA: White cell count is 20.1 on arrival, down to 10.3 and now 12.1, hemoglobin 10.2, platelets 194. Creatinine 0.76. Sodium 143, bilirubin is 0.3, AST and ALT within normal limits, alkaline phosphatase 60, albumin 3.6. IMAGING STUDIES: Chest x-ray with no acute cardiopulmonary abnormality noted. Brain CT with stable chronic ischemic changes, diffuse cerebral atrophy. ASSESSMENT: 1. Vascular dementia. 2. Prior cerebrovascular accident with left hemiparesis. 3. Hypoglycemia. 4. Decreased oral intake. 5. Neutrophilia. DISCUSSION: Differential diagnosis includes hypoglycemia secondary to decreased oral intake and in the phase of continuing insulin administration in the setting of decreased glomerular filtration rate versus associated inflammatory process. For example intraabdominal or respiratory tract inflammatory process that has not yet been disclosed. Thromboembolism would be another concern in view of her left hemiparesis. We will start workup with abdomen, pelvis, and chest CT with contrast and we will withhold vancomycin for now. Job ID: [id number]
[2019-01-29] MEDS: Piperacillin/Tazobactam 2.25 GM in Sodium Chloride 0.9% 100 ML IVPB SCH ×3 (06:01→22:05)
[2019-01-29] MEDS: HumaLOG 300 UNITS/3 ML VIAL SC PRN ×3 (06:07→17:44)
[2019-01-29 07:02] LABS: #Eosinphils 0.2 thou/uL (0.0-0.7); #Lymphocytes 1.8 thou/uL (1.20-3.40); #Monocytes 0.6 thou/uL (0.11-0.59); #Neutrophils 8.5 thou/uL (1.40-6.50); %Basophils 0.2 % (0.0-1.0); %Eosinophils 1.5 % (0.0-10.0); %Lymphocytes 16.5 % (21.0-51.0); %Monocytes 5.6 % (0.0-10.0); %Neutrophils 76.2 % (42.0-75.0); Hemoglobin 10.5 g/dL (12.0-16.0); Mean Corpuscular HGB CONC 33.8 g/dL (32.0-36.0); Mean Corpuscular Hemoglobin 33.2 pg (27.0-31.0); Mean Corpuscular Volume 98.2 fL (78.0-98.0); Platelet Count 181 thou/uL (130-400); RBC Distribution Width 13.5 % (11.5-14.5); Red Blood Cell (RBC) Count 3.16 mill/uL (4.20-5.40); White Blood Cell (WBC) Count 11.1 thou/uL (4.8-10.8)
[2019-01-29 07:21] LABS: Anion Gap 13 mmol/L (10-20); BUN (Urea Nitrogen) 12 mg/dL (9.8-20.1); Calc. Creatinine Clearance 39 mL/min (70-130); Calcium 8.3 mg/dL (7.8-10.44); Carbon Dioxide 19 mmol/L (23-31); Chloride 110 mmol/L (98-107); Estimated GFR-MDRD 74; Glucose 193 mg/dL (83-110); Potassium 3.8 mmol/L (3.5-5.1); Sodium 138 mmol/L (136-145)
[2019-01-29] MEDS: Megestrol Acetate 800 MG/20 ML UDCUP PO SCH (07:40)
[2019-01-29] MEDS: Aspirin 325 mg Enteric Coated Tablet PO SCH (07:41)
[2019-01-29] MEDS: Ascorbic Acid 500 mg Chewable Tablet PO SCH (07:41)
[2019-01-29] MEDS: Carvedilol 6.25 MG TAB PO SCH ×2 (07:41→21:48)
[2019-01-29] MEDS: Flecainide 50 MG TAB PO SCH ×2 (07:41→21:48)
[2019-01-29] MEDS: Enoxaparin Sodium 30 MG/0.3 ML SYRINGE SC SCH (07:41)
[2019-01-29] MEDS: Amlodipine 10 MG TAB PO SCH (07:42)
[2019-01-29] MEDS: Lisinopril 10 MG TAB PO SCH (07:42)
[2019-01-29] MEDS: Senokot S 8.6-50 MG TAB PO SCH ×2 (07:43→21:48)
--- NOTE | 2019-01-29 12:10 | PDOC.PN ---
- Subjective Encounter Start Date: 01/29/19 Encounter Start Time: 15:20 Subjective: Patient without complaint. Not oriented. Pleasant. No events overnight. -: Eating a bit better but requires a lot of time and assitance. - Objective Resuscitation Status - Order Detail: 01/23/19 15:05 Resuscitation Status Routine Resuscitation Status: DNAR: NO Resuscitation Discussed with: Confirmed with daughters SHIV RICE Reviewed: Yes Vital Signs & Weight: Vital Signs (12 hours) Temp Pulse Resp BP BP Pulse Ox 01/29/19 07:42 70 146/82 H 01/29/19 07:41 149/82 H 01/29/19 07:33 97.4 F L 60 20 149/82 H 96 Weight Admit Weight 88 lb 11.2 oz Weight 88 lb 11.2 oz I&O: 01/28/19 01/29/19 01/30/19 06:59 06:59 06:59 Intake Total 440 2240 Balance 440 2240 Result Diagrams: 01/29/19 06:39 01/29/19 06:39 Additional Labs: Accuchecks 01/29/19 01/28/19 01/28/19 06:05 19:43 17:08 POC Glucose 210 H 178 H 167 H Radiology Reviewed by me: Yes (CT abd with fluid indicating possible diffuse colitis ) Phys Exam - Physical Examination Constitutional: NAD HEENT: moist MMs Respiratory: no wheezing, no rales, no rhonchi Cardiovascular: RRR, no significant murmur Gastrointestinal: soft, non-tender, positive bowel sounds Neurological: non-focal Psychiatric: normal affect Deviation from normal: not oriented Dx/Plan (1) Hypoglycemia Code(s): E16.2 - HYPOGLYCEMIA, UNSPECIFIED Status: Resolved (2) Leukocytosis Code(s): D72.829 - ELEVATED WHITE BLOOD CELL COUNT, UNSPECIFIED Status: Acute Comment: improved, no infection obvious (3) History of cerebrovascular accident (CVA) with residual deficit Code(s): I69.30 - UNSPECIFIED SEQUELAE OF CEREBRAL INFARCTION Status: Chronic Comment: aphasia and left hemiparesis (4) Alzheimer's dementia Code(s): G30.9 - ALZHEIMER'S DISEASE, UNSPECIFIED; F02.80 - DEMENTIA IN OTH DISEASES CLASSD ELSWHR W/O BEHAVRL DISTURB Status: Chronic Comment: advanced , end stage (5) Diabetes mellitus type 2 in nonobese Code(s): E11.9 - TYPE 2 DIABETES MELLITUS WITHOUT COMPLICATIONS Status: Chronic Comment: off all meds due to recurrent hypoglycemia, sugars a bit high occasionaly but not bad (6) Severe protein-calorie malnutrition Code(s): E43 - UNSPECIFIED SEVERE PROTEIN-CALORIE MALNUTRITION Status: Acute Comment: -13.6% weight loss over 5 months, severe muscle wasting, limited fat stores - Plan cont current plan of care, continue antibiotics Family may need to make decision on PEG vs. palliative care/hospice -: Spoke with oldest daughter Omaira at who is the point -: person for the family. They are discussing hospice and will likely want to -: do that after colitis w/u and treatment addressed. * . - Discharge Day Encounter end time: 15:30
--- NOTE | 2019-01-29 18:32 | PRG ---
DATE OF SERVICE: 01/29/2019 SUBJECTIVE: Ms. Quintana again does not interact with the examiner. Other than establishing some eye contact and answers her name. According to the nurse, she has little bit of loose stool yesterday, but did not look like C. difficile type of stool. OBJECTIVE: VITAL SIGNS: She has been afebrile. HEENT: Ocular movements conjugate. LUNGS: Clear. HEART: S1 and S2, regular rate. ABDOMEN: Moderately distended with increased bowel sounds noted. No guarding. LABORATORY DATA: White cell count 11.1, hemoglobin 10.5, platelets 181, 76% neutrophils. Sodium 138, creatinine 0.76. CT of the abdomen showed that fluid throughout the colon suggestive of colitis was diarrhea. ASSESSMENT AND DISCUSSION: Vascular dementia, prior cerebrovascular accident with left hemiparesis, hypoglycemia, decreased oral intake, neutrophilia. Evidence of diarrhea, possible colitis. We will need to evaluate the stool for lactoferrin, stool pathogens including C. difficile. Job ID: [id number]
[2019-01-29] MEDS: Atorvastatin Calcium 40 MG TAB PO SCH (21:47)
[2019-01-29] MEDS: Clopidogrel Bisulfate 75 MG TAB PO SCH (21:47)
[2019-01-29] MEDS: Famotidine 20 MG TAB PO SCH (21:47)
[2019-01-30] MEDS: Piperacillin/Tazobactam 2.25 GM in Sodium Chloride 0.9% 100 ML IVPB SCH ×3 (06:00→22:31)
[2019-01-30] MEDS: HumaLOG 300 UNITS/3 ML VIAL SC PRN ×4 (06:04→21:14)
[2019-01-30 07:59] LABS: #Eosinphils 0.3 thou/uL (0.0-0.7); #Lymphocytes 1.7 thou/uL (1.20-3.40); #Monocytes 0.5 thou/uL (0.11-0.59); #Neutrophils 5.5 thou/uL (1.40-6.50); %Basophils 0.3 % (0.0-1.0); %Eosinophils 3.9 % (0.0-10.0); %Lymphocytes 21.4 % (21.0-51.0); %Monocytes 6.5 % (0.0-10.0); Hemoglobin 10.5 g/dL (12.0-16.0); Mean Corpuscular Volume 97.1 fL (78.0-98.0); Mean Platelet Volume 9.3 fL (7.4-10.4); Platelet Count 173 thou/uL (130-400); RBC Distribution Width 13.6 % (11.5-14.5); Red Blood Cell (RBC) Count 3.08 mill/uL (4.20-5.40); White Blood Cell (WBC) Count 8.1 thou/uL (4.8-10.8)
[2019-01-30 08:17] LABS: Anion Gap 12 mmol/L (10-20); BUN (Urea Nitrogen) 12 mg/dL (9.8-20.1); Calc. Creatinine Clearance 38 mL/min (70-130); Calcium 8.4 mg/dL (7.8-10.44); Carbon Dioxide 22 mmol/L (23-31); Chloride 107 mmol/L (98-107); Estimated GFR-MDRD 71; Glucose 171 mg/dL (83-110); Potassium 3.8 mmol/L (3.5-5.1); Sodium 137 mmol/L (136-145)
[2019-01-30] MEDS: Megestrol Acetate 800 MG/20 ML UDCUP PO SCH (09:31)
[2019-01-30] MEDS: Senokot S 8.6-50 MG TAB PO SCH ×2 (09:33→20:42)
[2019-01-30] MEDS: Amlodipine 10 MG TAB PO SCH (09:33)
[2019-01-30] MEDS: Carvedilol 6.25 MG TAB PO SCH ×2 (09:34→20:41)
[2019-01-30] MEDS: Aspirin 325 mg Enteric Coated Tablet PO SCH (09:35)
[2019-01-30] MEDS: Lisinopril 10 MG TAB PO SCH (09:35)
[2019-01-30] MEDS: Flecainide 50 MG TAB PO SCH ×2 (09:35→20:42)
[2019-01-30] MEDS: Enoxaparin Sodium 30 MG/0.3 ML SYRINGE SC SCH (09:36)
[2019-01-30] MEDS: Ascorbic Acid 500 mg Chewable Tablet PO SCH (09:36)
--- NOTE | 2019-01-30 10:01 | PDOC.PN ---
- Subjective Encounter Start Date: 01/30/19 Encounter Start Time: 12:20 Subjective: Patient unchanged. Ate a bit better today. No fever - Objective Resuscitation Status - Order Detail: 01/23/19 15:05 Resuscitation Status Routine Resuscitation Status: DNAR: NO Resuscitation Discussed with: Confirmed with daughters SHIV RICE Reviewed: Yes Vital Signs & Weight: Vital Signs (12 hours) Pulse BP 01/30/19 09:35 127/74 01/30/19 09:34 127/74 01/30/19 09:33 66 145/82 H Weight Admit Weight 88 lb 11.2 oz Weight 88 lb 11.2 oz I&O: 01/29/19 01/30/19 01/31/19 06:59 06:59 06:59 Intake Total 2240 1620 Balance 2240 1620 Result Diagrams: 01/30/19 07:16 01/30/19 07:15 Additional Labs: Accuchecks 01/30/19 01/29/19 01/29/19 04:23 20:44 17:08 POC Glucose 211 H 281 H 232 H 01/29/19 12:00 POC Glucose 250 H Phys Exam - Physical Examination Constitutional: NAD HEENT: moist MMs Respiratory: no wheezing, no rales, no rhonchi Cardiovascular: RRR, no significant murmur Gastrointestinal: soft, positive bowel sounds Neurological: non-focal, moves all 4 limbs Deviation from normal: alert, not oriented Dx/Plan (1) Hypoglycemia Code(s): E16.2 - HYPOGLYCEMIA, UNSPECIFIED Status: Resolved (2) Leukocytosis Code(s): D72.829 - ELEVATED WHITE BLOOD CELL COUNT, UNSPECIFIED Status: Resolved Comment: improved, no infection obvious, still on Zosyn (3) History of cerebrovascular accident (CVA) with residual deficit Code(s): I69.30 - UNSPECIFIED SEQUELAE OF CEREBRAL INFARCTION Status: Chronic Comment: aphasia and left hemiparesis (4) Alzheimer's dementia Code(s): G30.9 - ALZHEIMER'S DISEASE, UNSPECIFIED; F02.80 - DEMENTIA IN OTH DISEASES CLASSD ELSWHR W/O BEHAVRL DISTURB Status: Chronic Comment: advanced , end stage (5) Diabetes mellitus type 2 in nonobese Code(s): E11.9 - TYPE 2 DIABETES MELLITUS WITHOUT COMPLICATIONS Status: Chronic Comment: off all meds due to recurrent hypoglycemia, sugars a bit high occasionaly but not bad (6) Severe protein-calorie malnutrition Code(s): E43 - UNSPECIFIED SEVERE PROTEIN-CALORIE MALNUTRITION Status: Acute Comment: -13.6% weight loss over 5 months, severe muscle wasting, limited fat stores - Plan cont current plan of care, continue antibiotics colitis possible on CT, awaiting stool studies, not sent yesterday by -: nursing for some reason, nurse today aware of orders and will send if she -: has another bowel movement * . - Discharge Day Encounter end time: 12:30
[2019-01-30] MEDS: Atorvastatin Calcium 40 MG TAB PO SCH (20:40)
[2019-01-30] MEDS: Clopidogrel Bisulfate 75 MG TAB PO SCH (20:41)
[2019-01-30] MEDS: Famotidine 20 MG TAB PO SCH (20:42)
[2019-01-31] MEDS: Piperacillin/Tazobactam 2.25 GM in Sodium Chloride 0.9% 100 ML IVPB SCH (06:11)
[2019-01-31] MEDS: HumaLOG 300 UNITS/3 ML VIAL SC PRN ×2 (06:12→11:34)
[2019-01-31 07:50] VITALS: BP 121/77; TEMP 98.4
[2019-01-31] MEDS: Carvedilol 6.25 MG TAB PO SCH (08:39)
[2019-01-31] MEDS: Aspirin 325 mg Enteric Coated Tablet PO SCH (08:39)
[2019-01-31] MEDS: Senokot S 8.6-50 MG TAB PO SCH (08:39)
[2019-01-31] MEDS: Lisinopril 10 MG TAB PO SCH (08:39)
[2019-01-31] MEDS: Amlodipine 10 MG TAB PO SCH (08:39)
[2019-01-31] MEDS: Flecainide 50 MG TAB PO SCH (08:39)
[2019-01-31] MEDS: Ascorbic Acid 500 mg Chewable Tablet PO SCH (08:39)
[2019-01-31] MEDS: Megestrol Acetate 800 MG/20 ML UDCUP PO SCH (08:40)
[2019-01-31] MEDS: Enoxaparin Sodium 30 MG/0.3 ML SYRINGE SC SCH (08:40)
--- NOTE | 2019-01-31 09:27 | PDOC.PN ---
- Subjective Encounter Start Date: 01/31/19 Encounter Start Time: 12:40 Subjective: Patient without any changes. No fever. Eating ok if persistent attendent -: No diarrhea. Stool studies sent and negative. - Objective Resuscitation Status - Order Detail: 01/23/19 15:05 Resuscitation Status Routine Resuscitation Status: DNAR: NO Resuscitation Discussed with: Confirmed with daughters SHIV RICE Reviewed: Yes Vital Signs & Weight: Vital Signs (12 hours) Temp Pulse Resp BP BP Pulse Ox 01/31/19 08:39 70 121/77 01/31/19 07:49 98.4 F 70 16 121/77 97 01/31/19 05:00 98.7 F 78 14 132/73 96 Weight Admit Weight 88 lb 11.2 oz Weight 88 lb 11.2 oz I&O: 01/30/19 01/31/19 02/01/19 06:59 06:59 06:59 Intake Total 1620 1160 Balance 1620 1160 Result Diagrams: 01/30/19 07:16 01/30/19 07:15 Additional Labs: Accuchecks 01/31/19 01/30/19 01/30/19 05:09 20:26 16:41 POC Glucose 193 H 302 H 288 H 01/30/19 11:57 POC Glucose 362 H Phys Exam - Physical Examination Constitutional: NAD HEENT: moist MMs Respiratory: no wheezing, no rales, no rhonchi Cardiovascular: RRR, no significant murmur Gastrointestinal: soft, positive bowel sounds Neurological: non-focal Deviation from normal: less talkative today, denies complaints, not oriented Dx/Plan (1) Hypoglycemia Code(s): E16.2 - HYPOGLYCEMIA, UNSPECIFIED Status: Resolved Comment: no more diabetic medications (2) Leukocytosis Code(s): D72.829 - ELEVATED WHITE BLOOD CELL COUNT, UNSPECIFIED Status: Resolved Comment: improved, no infection obvious, discussed with Dr. Lovelace and d/c'ing antibiotics (3) History of cerebrovascular accident (CVA) with residual deficit Code(s): I69.30 - UNSPECIFIED SEQUELAE OF CEREBRAL INFARCTION Status: Chronic Comment: aphasia and left hemiparesis (4) Alzheimer's dementia Code(s): G30.9 - ALZHEIMER'S DISEASE, UNSPECIFIED; F02.80 - DEMENTIA IN OTH DISEASES CLASSD ELSWHR W/O BEHAVRL DISTURB Status: Chronic Comment: advanced , end stage (5) Diabetes mellitus type 2 in nonobese Code(s): E11.9 - TYPE 2 DIABETES MELLITUS WITHOUT COMPLICATIONS Status: Chronic Comment: off all meds due to recurrent hypoglycemia, sugars a bit high occasionaly but not bad (6) Severe protein-calorie malnutrition Code(s): E43 - UNSPECIFIED SEVERE PROTEIN-CALORIE MALNUTRITION Status: Acute Comment: -13.6% weight loss over 5 months, severe muscle wasting, limited fat stores - Plan cont current plan of care, continue antibiotics, DVT proph w/lovenox, DVT proph w/SCDs discussed case with daughter Omaira -[facility] with clear instructions to have a medical -: attendant feed her at every meal and give regular fluids * . - Discharge Day Encounter end time: 13:10
--- NOTE | 2019-02-01 06:26 | DIS ---
DATE OF ADMISSION: 01/23/2019 DATE OF DISCHARGE: 01/31/2019 PRIMARY CARE PHYSICIAN: Sharmin Gunter DO REASON FOR ADMISSION: Altered mental status and hypoglycemia. DIAGNOSES AT DISCHARGE: 1. Hypoglycemia, resolved. All diabetic medications discontinued. 2. Leukocytosis, resolved, likely reactive to dehydration. 3. History of previous stroke with residual deficits. 4. Alzheimer's dementia, end-stage. 5. Diabetes mellitus, type 2, now off all hypoglycemic medications. 6. Severe protein-calorie malnutrition. PROCEDURES: CT scan of the abdomen and pelvis with contrast showing no evidence for abscess or infected fluid collection. There was some fluid attenuation scattered throughout the colon, though correlate for possible colitis. CONSULTATIONS: Infectious Disease, Dr. Lovelace. SUMMARY OF HOSPITAL COURSE: This is a 78-year-old white female with dementia and previous stroke, shelter resident. She is not able to feed herself or is not able to move around at all. She is completely dependent on care at the shelter, though her family does say that she still remembers her children's names. She was noted to have altered mental status and low blood sugars and decreased mentation. Blood sugars down to the 30s. She had previously been on long- acting insulins for her diabetes and had similar presentations in the past. The patient has had difficulty with oral intake, apparently requiring 36 units per meal to take everything in and family is not certain that the shelter is actually providing the care she needs to get the food in. The patient had a high white blood cell count and was volume depleted in the emergency room. She was given IV fluids and antibiotics. She had elevated renal function as well. The patient had resolution of all these abnormalities quickly with IV fluids and antibiotics in the hospital. No focus of infection was found. A CT scan was done that showed possible colitis. Dr. Lovelace was consulted for his assistance and determined there was an infectious etiology to her decline. He did recommend stool studies. The patient had normal bowel movements and the stool studies were negative. At this point, Dr. Lovelace recommended discontinuing the antibiotics. I did discuss the patient's workup with the family. At this point, it looks like she is just having severely advanced dementia with recurrent poor feeding. During the hospitalization, we were able to get her to take a decent amount of food in but not enough to stay to keep from getting hypoglycemic even which is metformin, so all blood sugar medicines were discontinued. Her blood sugars did tend to run high sometimes, but other times they were normal, so we will just keep her off those from now on. I did discuss the patient's continued decline and that she will eventually from this. Family is discussing hospice but is not making any decisions at that point. She is back to her baseline and is being discharged back to the shelter with explicit instructions to provide a feeder to give her all of her meals and to get her regular oral fluids to keep her from getting this bad again. DISCHARGE MANAGEMENT: Discharged back to shelter. ACTIVITY: As tolerated. DIET: Diabetic diet with Glucerna t.i.d., texture is puree with extra gravy and sauce, thin liquids by controlled sips with straw or cup and attendant to feed all meals and liquids. FOLLOWUP: Follow up with Dr. Gunter in 7 days. DISCHARGE MEDICATIONS: Stop metformin and insulins. Continue all other medications; 1. Acetaminophen as needed. 2. Amlodipine 10 mg daily. 3. Vitamin C 500 mg daily. 4. Aspirin 325 mg daily. 5. Atorvastatin 40 mg at night. 6. Prolensa one drop in each eye twice a day. 7. Calcium 600 plus vitamin D daily. 8. Carvedilol 6.25 mg twice a day. 9. Clopidogrel 75 mg daily. 10. Aricept 10 mg daily. 11. Ferrous sulfate 220 mg twice a day. 12. Flecainide 50 mg twice a day. 13. Lisinopril 10 mg daily. 14. Milk of magnesia 30 mL p.o. daily as needed. 15. Magnesium oxide 400 mg daily. 16. Megace 400 mg daily. 17. Memantine 10 mg twice a day. 18. Ondansetron as needed. 19. Protonix 40 mg daily. 20. MiraLAX 17 g daily. 21. Prednisolone acetate 1% eye drop in each eye twice a day. Arranging the details of this discharge took 35 minutes. Job ID: [id number] [facility]
== END 2019-01-31 17:28 | DRG 637 ==
LOC: ERS 11:58 → ERHOLD 13:50 → T4-A 15:31
PROVIDERS: ADMIT Family Medicine; ATTEND Family Medicine
DX: E11.649 Type 2 diabetes mellitus with hypoglycemia without coma (principal); G93.41 Metabolic encephalopathy; E43 Unspecified severe protein-calorie malnutrition; I69.354 Hemiplegia and hemiparesis following cerebral infarction affecting left non-dominant side; E87.0 Hyperosmolality and hypernatremia; Z68.1 Body mass index [BMI] 19.9 or less, adult; Z66 Do not resuscitate; I69.320 Aphasia following cerebral infarction; E11.22 Type 2 diabetes mellitus with diabetic chronic kidney disease; N18.3 Chronic kidney disease, stage 3 (moderate); E87.6 Hypokalemia; D72.829 Elevated white blood cell count, unspecified; N17.9 Acute kidney failure, unspecified; E86.0 Dehydration; G30.9 Alzheimer's disease, unspecified; F02.80 Dementia in other diseases classified elsewhere, unspecified severity, without behavioral disturbance, psychotic disturbance, mood disturbance, and anxiety; E11.65 Type 2 diabetes mellitus with hyperglycemia; Z79.82 Long term (current) use of aspirin; Z79.899 Other long term (current) drug therapy; Z79.02 Long term (current) use of antithrombotics/antiplatelets; Z88.5 Allergy status to narcotic agent; Z79.4 Long term (current) use of insulin; I12.9 Hypertensive chronic kidney disease with stage 1 through stage 4 chronic kidney disease, or unspecified chronic kidney disease
CPT/HCPCS: 36415; 36416; 51701; 70450; 71045; 71260; 74177; 80048; 80053; 80202; 81003; 82553; 83605; 83630; 83690; 84484; 85007; 85025; 85027; 87045; 87046; 87324; 87449; 87899; 93005; 94760; 96365; 96375; A4353; J0696; J1650; J1825; J2543; J3370; J3490; J7050; Q9967; S0028